=== PATIENT | female | born 1980 | race Caucasian/White ===

== ENCOUNTER → 2016-08-21 | Outpatient (CLI) | payer BC ==
[~2016-08-21] MED LIST: IOHEXOL 240 MG/ML 50ML VIAL. ONE; IOHEXOL 300 MG/ML 75 ML VIAL. IV ONE; SULF1TAB23 PO
--- NOTE | 2016-08-21 09:52 | RAD ---
CT of the abdomen with contrast, 08/21/2016: History: Abdominal pain, previous cervical cancer Multidetector CT imaging was performed following oral and IV administration of contrast. Comparison is made to a study from 03/11/2011. No hepatic abnormality is detected. The gallbladder is unremarkable. No pancreatic abnormality is seen. The spleen is of normal size. The kidneys show no evidence of obstruction or mass. The adrenal glands are unremarkable. The abdominal aorta is of normal caliber. No retroperitoneal or mesenteric adenopathy is seen. No free fluid is evident in the abdomen. The majority of the small bowel loops lie on the right and the majority of the colon is on the left. The findings indicate congenital malrotation/nonrotation. This appearance was also noted on the previous exam. There is no evidence of bowel obstruction. IMPRESSION: 1. Intestinal malrotation without current evidence of obstruction. 2. The abdomen is otherwise unremarkable. PQRS Compliance Statement: One or more of the following individualized dose reduction techniques were utilized for this examination: 1. Automated exposure control 2. Adjustment of the mA and/or kV according to patient size 3. Use of iterative reconstruction technique
== END | disposition home or self-care (01) ==
LOC: CT 07:06
PROVIDERS: ATTEND Family Medicine
DX: R10.9 Unspecified abdominal pain (principal); Q43.3 Congenital malformations of intestinal fixation; Z85.41 Personal history of malignant neoplasm of cervix uteri
CPT/HCPCS: 74160; Q9966; Q9967

== ENCOUNTER → 2018-01-10 | Outpatient (CLI) | payer BC ==
[~2018-01-10] MED LIST changes: -IOHEXOL 240 MG/ML 50ML VIAL. ONE; -IOHEXOL 300 MG/ML 75 ML VIAL. IV ONE
--- NOTE | 2018-01-10 15:59 | RAD ---
Chest, 2 views, 01/10/2018: HISTORY: Cough The heart size is normal. No pulmonary infiltrate is seen. There is no evidence of pleural fluid. IMPRESSION: No acute cardiopulmonary abnormality is detected. Electronically signed by: Aubrey Clemons MD (01/10/2018 3:55 PM) [facility]
== END | disposition home or self-care (01) ==
LOC: DXRAD 15:03
PROVIDERS: ATTEND Neuromusculoskeletal Medicine & OMM
DX: R05 Cough (principal); Z85.41 Personal history of malignant neoplasm of cervix uteri
CPT/HCPCS: 71046

== ENCOUNTER 2019-06-30 19:04 | Emergency (ER) | payer BC ==
[~2019-06-30] VITALS: Ht 182.9 cm; Wt 89.1 kg
[2019-06-30] MEDS ORDERED: IPRATRPIUM/ALBUTEROL 0.5/2.5MG 3 ML NEBU. NEB ONE (19:45)
[2019-06-30 20:19] LABS: INFLUENZA A PATIENT NEGATIVE (NEGATIVE); INFLUENZA B PATIENT NEGATIVE (NEGATIVE)
--- NOTE | 2019-06-30 20:59 | RAD ---
Study: CHEST AP ONLY Indication: Cough. Comparison: 01/10/2018 Findings: Unremarkable cardiomediastinal silhouette and reza. No localized infiltrate, pleural effusion or pneumothorax. Impression: Unremarkable appearance of the chest. Electronically signed by: AMIE MONTENEGRO MD (06/30/2019 8:56 PM) [id number]
[2019-06-30] MEDS ORDERED: AZIT250T6 PO (21:05)
[2019-06-30] MEDS ORDERED: ALBU2.5V8 IH (21:05)
[2019-06-30 21:07] VITALS: BP 144/87
--- NOTE | 2019-06-30 22:40 | PHYS DOC ---
Adult General Chief Complaint Chief Complaint: COUGH HPI HPI Patient is a 38-year-old female who is presenting with chief complaint of cough productive of yellow sputum some rib pain bilaterally with coughing subjective fevers throughout the week she does not know if she had a fever she is just been feeling hot and cold. 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 She does work with a gentleman who was in [place] and apparently was coughing but no fevers that she knows of. Patient is a smoker. No other past medical history she went to her primary doctor's office for the symptoms who recommended that she be evaluated for possible coronavirus Review of Systems Review of Systems Constitutional: Cardiovascular: No additional information not addressed in HPI [] GI: Denies abdominal pain, nausea, vomiting, bloody stools or diarrhea [] : Denies dysuria or hematuria [] Musculoskeletal: Denies back pain or joint pain [] Integument: Denies rash or skin lesions [] Neurologic: Denies headache, focal weakness or sensory changes [] Endocrine: Denies polyuria or polydipsia [] All other systems were reviewed and found to be within normal limits, except as documented in this note. Current Medications Current Medications Current Medications Medications (Trade) Dose Ordered Sig/Iza Start Time Stop Time Status Last Admin Dose Admin Albuterol/ Ipratropium (Duoneb) 3 ml 1X ONCE 06/30/19 19:45 06/30/19 19:46 DC 06/30/19 19:50 3 ML Allergies Allergies Allergies Coded Allergies Type Severity Reaction Last Updated Verified No Known Drug Allergies 06/26/14 No Physical Exam Physical Exam Constitutional: Well developed, well nourished, no acute distress, non-toxic appearance. [] HENT: Normocephalic, atraumatic, bilateral external ears normal, oropharynx moist, no oral exudates, nose normal. [] Eyes: PERRLA, EOMI, conjunctiva normal, no discharge. [] Neck: Normal range of motion, no tenderness, supple, no stridor. [] Cardiovascular:Heart rate regular rhythm, no murmur [] Lungs & Thorax: Prolonged expiratory phase with faint wheezing which was much improved after nebulizer Abdomen: Bowel sounds normal, soft, no tenderness, no masses, no pulsatile masses. [] Skin: Warm, dry, no erythema, no rash. [] Back: No tenderness, no CVA tenderness. [] Extremities: No tenderness, no cyanosis, no clubbing, ROM intact, no edema. [] Neurologic: Alert and oriented X 3, normal motor function, normal sensory function, no focal deficits noted. [] Psychologic: Affect normal, judgement normal, mood normal. [] Current Patient Data Vital Signs See nurse's note for complete vitals the patient was afebrile with normal oxygenation. Lab Results Laboratory Tests Test 06/30/19 19:44 Influenza Type A (Rapid) Negative (NEGATIVE) Influenza Type B (Rapid) Negative (NEGATIVE) EKG EKG [] Radiology/Procedures Radiology/Procedures [] Impressions: Comparison: 01/10/2018 Findings: Unremarkable cardiomediastinal silhouette and reza. No localized infiltrate, pleural effusion or pneumothorax. Impression: Unremarkable appearance of the chest. Electronically signed by: AMIE MONTENEGRO MD (06/30/2019 8:56 PM) [id number] DICTATED AND SIGNED BY: AMIE MONTENEGRO MD DATE: 06/30/192055 CC: SIXTO VASQUEZ MD; JACQUELYN JOHNSON MD ~ Course & Med Decision Making Course & Med Decision Making Pertinent Labs and Imaging studies reviewed. (See chart for details) [] 38-year-old female with URI symptoms bronchitis symptoms for 1 week. Chest x-ray and influenza swab were negative she felt much better after treatment in the emergency room given her smoking history I opted to give her antibiotics and albuterol. I did speak with the [facility] [place] [facility] [employer] and environment regarding this case and they recommended do not test for coronavirus as there is no high risk exposure and the patient is afebrile. I spoke with Ailyn at [phone] Abida Disclaimer Abida Disclaimer This electronic medical record was generated, in whole or in part, using a voice recognition dictation system. Departure Departure: Impression: Primary Impression: Cough Disposition: 01 HOME, SELF-CARE Condition: STABLE Patient Instructions: Cough, Adult, [id number] Scripts Azithromycin (AZITHROMYCIN TABLET) 250 Mg Tablet 1 PKG PO UD for BRONCHITIS for 5 Days, #6 TAB 0 Refills 2 the first day followed by 1 for days 2-5 Prov: SIXTO VASQUEZ MD 06/30/19 Albuterol Sulfate (PROAIR HFA INHALER) 8.5 Gm Hfa.aer.ad 2 PUFF IH PRN Q4-6HRS PRN for wheezing for 21 Days, #1 INHALER 0 Refills Prov: SIXTO VASQUEZ MD 06/30/19 SIXTO VASQUEZ MD Jun 30, 2019 22:40
== END 2019-06-30 21:10 | disposition home or self-care (01) ==
LOC: ER 19:04
DX: R05 Cough (principal); R09.3 Abnormal sputum; R07.81 Pleurodynia; R50.9 Fever, unspecified
CPT/HCPCS: 71045; 87804; 99284

== ENCOUNTER 2019-11-17 19:46 | Emergency (ER) | payer BC ==
[~2019-11-17] VITALS: Ht 182.9 cm; Wt 95.5 kg
[~2019-11-17 19:46] MED LIST changes: +ALBU2.5V8 IH; +AZIT250T6 PO
[2019-11-17 19:55] VITALS: BP 133/77
[2019-11-17] MEDS ORDERED: DEXAMETHASONE 4 MG TABLET PO ONE (20:00)
[2019-11-17] MEDS ORDERED: CLIN300C8 PO (20:01)
[2019-11-17] MEDS ORDERED: PRED20TA PO (20:01)
--- NOTE | 2019-11-17 20:01 | PHYS DOC ---
Past History Past Medical History: No Pertinent History Past Surgical History: Appendectomy, Cholecystectomy, Hysterectomy, Other Additional Past Surgical Histo: LADDS procedure intestines Alcohol Use: None General Adult EDM: Chief Complaint: SKIN RASH/ABSCESS HPI: HPI: Patient is a [age] year old [sex] who presents with [] Review of Systems: Review of Systems: Constitutional: Denies fever or chills Eyes: Denies change in visual acuity HENT: Denies nasal congestion or sore throat Respiratory: Denies cough or shortness of breath Cardiovascular: Denies chest pain or edema GI: Denies abdominal pain, nausea, vomiting, bloody stools or diarrhea : Denies dysuria Musculoskeletal: Denies back pain or joint pain Integument: Denies rash Neurologic: Denies headache, focal weakness or sensory changes Endocrine: Denies polyuria or polydipsia Lymphatic: Denies swollen glands Psychiatric: Denies depression or anxiety Heart Score: Risk Factors: Risk Factors: DM, Current or recent (<one month) smoker, HTN, HLP, family history of CAD, obesity. Risk Scores: Score 0 - 3: 2.5% MACE over next 6 weeks - Discharge Home Score 4 - 6: 20.3% MACE over next 6 weeks - Admit for Clinical Observation Score 7 - 10: 72.7% MACE over next 6 weeks - Early Invasive Strategies Allergies: Allergies: Allergies Coded Allergies Type Severity Reaction Last Updated Verified No Known Drug Allergies 06/26/14 No Physical Exam: PE: Constitutional: Well developed, well nourished, no acute distress, non-toxic appearance. [] HENT: Normocephalic, atraumatic, bilateral external ears normal, oropharynx moist, no oral exudates, nose normal. [] Eyes: PERRLA, EOMI, conjunctiva normal, no discharge. [] Neck: Normal range of motion, no tenderness, supple, no stridor. [] Cardiovascular:Heart rate regular rhythm, no murmur [] Lungs & Thorax: Bilateral breath sounds clear to auscultation [] Abdomen: Bowel sounds normal, soft, no tenderness, no masses, no pulsatile masses. [] Skin: Warm, dry, no erythema, no rash. [] Back: No tenderness, no CVA tenderness. [] Extremities: No tenderness, no cyanosis, no clubbing, ROM intact, no edema. [] Neurologic: Alert and oriented X 3, normal motor function, normal sensory function, no focal deficits noted. [] Psychologic: Affect normal, judgement normal, mood normal. [] EKG: EKG: [] Radiology/Procedures: Radiology/Procedures: [] Course & Med Decision Making: Course & Med Decision Making Pertinent Labs and Imaging studies reviewed. (See chart for details) [] Dragon Disclaimer: Dragon Disclaimer: This electronic medical record was generated, in whole or in part, using a voice recognition dictation system. Departure Departure: Impression: Primary Impression: Rash Disposition: HOME/RESIDENCE PRIOR TO ADM Condition: STABLE Referrals: JACQUELYN JOHNSON MD (PCP) Patient Instructions: Cellulitis, [id number]-[id number], Insect Bite, [id number], Rash, [id number] Additional Instructions: Take over the counter Tylenol and/or Ibuprofen for pain or discomfort. Scripts Prednisone (PREDNISONE) 20 Mg Tablet 2 TAB PO DAILY for Rash, #8 TAB Prov: RAZA BRANTLEY DO 11/17/19 Clindamycin Hcl (CLINDAMYCIN HCL) 300 Mg Capsule 1 CAP PO TID for infection, #21 CAP Prov: RAZA BRANTLEY DO 11/17/19 Justification of Admission: Justification of Admission: Justification of Admission Dx: N/A RAZA BRANTLEY DO Nov 17, 2019 20:01
[2019-11-17] MEDS ORDERED: CLINDAMYCIN HCL 150 MG CAPSULE PO ONE (20:10)
== END 2019-11-17 20:15 | disposition home or self-care (01) ==
LOC: ER 19:46
DX: R21 Rash and other nonspecific skin eruption (principal)
CPT/HCPCS: 99283; J8540

== ENCOUNTER → 2021-09-05 | Outpatient (CLI) | payer BC ==
[~2021-09-05] MED LIST changes: +CLIN-95 PO; +PRED20TA PO
--- NOTE | 2021-09-05 10:03 | RAD ---
XR ABDOMEN 1V History: Abdomen pain for 2 weeks Comparison: Radiographs 04/04/2016. Technique: 2 supine views of the abdomen Findings: Bowel gas pattern: Nonobstructive bowel gas pattern. There is stool and gas in the left colon to the rectum. Free air: No supine evidence. Abnormal calcifications: Calcifications in the right pelvis may represent phleboliths. Bones: Degenerative changes of the pubic symphysis. Other: Right upper quadrant cholecystectomy clips. Lung bases are clear. Impression: 1. No acute abdominal findings. Electronically signed by: Navid Pollock MD (09/05/2021 10:01 AM) [id number]
== END ==
LOC: RAD 09:34
PROVIDERS: ATTEND Nurse Practitioner Family
DX: R10.30 Lower abdominal pain, unspecified (principal); Z90.49 Acquired absence of other specified parts of digestive tract
CPT/HCPCS: 74018